=== PATIENT | male | born 1965 | race Caucasian/White ===

== ENCOUNTER 2019-06-05 12:38 | Emergency (ER) | payer OTHER ==
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
--- NOTE | 2019-06-05 14:35 | CT ---
CT thoracic spine Technique: Multiple axial sections were obtained through the thoracic spine. Reconstructed sagittal and coronal images were obtained. Findings: Previous surgery is noted within the lower cervical spine. Vertebral body heights and disc spaces are maintained within the thoracic spine. No fracture is appreciated. No abnormal subluxation is noted. No discrete traumatic disc herniation is appreciated. No bony central or bony neural foraminal stenosis is seen. Mild scattered endplate osteophytes are seen. Impression: 1. Prior surgery and minimal degenerative change. 2. No acute fracture or acute subluxation is seen. Diagnostic code #2 This report was dictated in [place] Standard Time
--- NOTE | 2019-06-05 14:47 | CT ---
CT cervical spine Technique: Multiple axial sections were obtained from above C1 inferiorly to the bottom of T2. Reconstructed sagittal and coronal images were reviewed. Comparison: No prior CT cervical spine exam. Findings: Mild disc space narrowing at C4-5. Severe disc space narrowing at C5-6 with posterior osteophytes. Previous fusion with anterior plate screws are noted at C6-7. Moderate disc space narrowing is noted at C7-T1. Scattered endplate osteophytes are seen anteriorly. Mild diffuse degenerative apophyseal change is seen. Bony density is noted off the spinous process of C7 which is old likely due to old avulsion injury. C3-4: Moderate to severe right-sided neural foraminal stenosis is seen. Left neural foramina is patent. C4-5: Moderate right-sided neural foraminal stenosis is seen. Mild left-sided neural foraminal stenosis is noted. C5-6: Severe right-sided neural foraminal stenosis is seen. Moderate to severe left-sided neural foraminal stenosis is seen. Mild central canal stenosis is noted. C6-7: Moderate to severe right-sided neural foraminal stenosis. Mild left-sided neural foraminal stenosis is seen. No other levels of neural foraminal stenosis or central canal stenosis is seen. Impression: 1. Prior surgery at C6-7. 2. Degenerative change seen diffusely within the cervical spine. Multiple levels of neural foraminal stenosis is seen. Central canal stenosis is noted at C5-6. 3. Old injury off the tip of the spinous process of C7. 4. Nothing acute is appreciated on CT study of the cervical spine. Diagnostic code #3 This report was dictated in [place] Standard Time
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
== END 2019-06-05 15:24 | disposition home or self-care (01) ==
LOC: MW.ED 12:38
DX: M62.838 Other muscle spasm (principal); E03.9 Hypothyroidism, unspecified; Z79.899 Other long term (current) drug therapy; Z88.8 Allergy status to other drugs, medicaments and biological substances; V53.9XXA Unspecified occupant of pick-up truck or van injured in collision with car, pick-up truck or van in traffic accident, initial encounter
CPT/HCPCS: 70450; 70450-26; 72125; 72125-26; 72128; 72128-26; 99282; 99284-25